=== PATIENT | female | born 1990 | race American Indian/Alaskan Native ===

== ENCOUNTER 2016-03-25 16:05 | Emergency (ER) | payer MEDICAID ==
[2016-03-25 17:12] VITALS: BP 114/48
--- NOTE | 2016-03-25 22:47 | Emergency Department Report ---
ED Eye Problem HPI - General Chief complaint: Eye Problems Stated complaint: POSS PINE EYE Source: patient Mode of arrival: Ambulatory Limitations: No Limitations - History of Present Illness Initial comments: 25-year-old female comes in for complaint of pain and redness of right eye. Patient reports that this is been going on for 1 week. It happened after she dyed her hair. She does admit to eye discharge but her eyelashes do not match and there is no yellowish greenish discharge just a clear white. He does admit that the light makes her eyes tear. The patient reports she was treated at the [facility] for this condition. She has been using the eyedrops but reports that the eye seems to be getting worse. Admit to mild photophobia and pain. - Related Data Home Medications Medication Instructions Recorded Confirmed Last Taken ALBUTEROL Inhaler [Proair] 2 puff IH QID PRN 04/12/15 04/12/15 Unknown Previous Rx's Medication Instructions Recorded Last Taken Type Doxycycline [Vibramycin CAP] 100 mg PO Q12HR #28 capsule 04/12/15 Unknown Rx Erythromycin [Erythromycin Ophth 1 strip OD QID #1 tube 03/25/16 Unknown Rx Oint] Allergies Allergy/AdvReac Type Severity Reaction Status Date / Time orange Allergy Swelling Verified 04/12/15 12:09 ED Review of Systems ROS: Stated complaint: POSS PINE EYE Other details as noted in HPI Constitutional: denies: chills, fever Eyes: eye pain, eye discharge (watery) ENT: denies: throat pain Neurological: denies: headache ED Past Medical Hx - Past Medical History Hx Asthma: Yes - Surgical History Additional Surgical History: - Social History Smoking Status: Never Smoker Substance Use Type: Alcohol - Medications Home Medications: Home Medications Medication Instructions Recorded Confirmed Last Taken Type ALBUTEROL Inhaler [Proair] 2 puff IH QID PRN 04/12/15 04/12/15 Unknown History Doxycycline [Vibramycin CAP] 100 mg PO Q12HR #28 capsule 04/12/15 Unknown Rx Erythromycin [Erythromycin Ophth 1 strip OD QID #1 tube 03/25/16 Unknown Rx Oint] ED Physical Exam - General Limitations: No Limitations General appearance: alert, in no apparent distress - Eye Eye exam: Present: PERRL, EOMI, scleral icterus, conjunctival injection Pupils: Present: normal accommodation, irregular ED Course Vital Signs 03/25/16 17:08 Temperature 98.7 F Pulse Rate 74 Respiratory 16 Rate Blood Pressure 114/48 O2 Sat by Pulse 98 Oximetry ED Medical Decision Making - Medical Decision Making Has been evaluated by this provider in fast track. Attempt to use it katie meter but the reading came up bad. Therefore the test was not useful. Fluorescein exam was performed no cording or abrasion uptake of the sclera inner and lateral aspect. As the Dr. Valenzuela he recommends changing the patient's antibiotic to erythromycin, ointment. Must follow-up with the dba manager. Critical care attestation.: If time is entered above; I have spent that time in minutes in the direct care of this critically ill patient, excluding procedure time. ED Disposition Clinical Impression: Conjunctivitis, right eye Qualifiers: Conjunctivitis type: acute Acute conjunctivitis type: unspecified Qualified Code(s): H10.31 - Unspecified acute conjunctivitis, right eye Disposition: DISCHARGED TO HOME OR SELFCARE Is pt being admited?: No Does the pt Need Aspirin: No Condition: Stable Instructions: Conjunctivitis (ED) Additional Instructions: Use antibiotic ointment to right eye as prescribed very very very importantly to follow up with dba manager as soon as possible. We will provide GI referral. Prescriptions: Erythromycin [Erythromycin Ophth Oint] 1 strip OD QID #1 tube Referrals: PRIMARY CARE, [Primary Care Provider] - 3-5 Days NAVEED RIVERA MD [Staff Physician] - 3-5 Days REYNA WILSON MD [Staff Physician] - 3-5 Days CARL AJ MD [Staff Physician] - 3-5 Days Forms: Work/School Release Form(ED)
[2016-03-25] MEDS: BSS 1 DROPS, TETRACAINE 0.5% 1 DROPS, FUL-GLO 1 MG OD ONE (23:38)
== END 2016-03-25 23:59 | disposition home or self-care (01) ==
LOC: ED 16:05
DX: H10.31 Unspecified acute conjunctivitis, right eye (principal); J45.909 Unspecified asthma, uncomplicated
CPT/HCPCS: 99282

== ENCOUNTER 2016-09-24 11:19 | Emergency (ER) | payer SELFPAY ==
[2016-09-24 11:32] VITALS: BP 102/57
[2016-09-24] MEDS ORDERED: TYLENOL PO ONE (13:42)
--- NOTE | 2016-09-24 14:42 | Emergency Department Report ---
Entered by SANGEETA FONTENOT, acting as scribe for RAKAN CHAU NP. ED ENT HPI - General Chief complaint: Dental/Oral Stated complaint: BACK OF TONGUE BURNING Time Seen by Provider: 09/24/16 13:34 Source: patient Mode of arrival: Ambulatory Limitations: No Limitations - History of Present Illness Initial comments: 26 y/o female presents to the ED c/o sore throat x 2 weeks. Associated symptoms include burning to tongue but she denies fever, chills, nausea and vomiting. Pain is described as burning and 6/10 on a severity scale. Patient states her tongue feels raw like she has ulcers and that she has been spitting a lot lately. No alleviating or aggravating factors. NKDA. Patient is 15 weeks . , P:2, A:1. LMP: 06/11/16. complaint: sore throat Onset/Timin -: week(s) Location: throat Severity: moderate Severity scale (0 -10): 6 Quality: burning Consistency: constant Improves with: none Worsens with: none Associated Symptoms: other (burning to tongue, denies:fever, chills, nausea and vomiting) - Related Data Home Medications Medication Instructions Recorded Confirmed Last Taken ALBUTEROL Inhaler [Proair] 2 puff IH QID PRN 04/12/15 09/24/16 Unknown Previous Rx's Medication Instructions Recorded Last Taken Type Acetaminophen 650 mg PO QID PRN #60 capsule 09/24/16 Unknown Rx Benzocaine/Menth/Cetylpyrd 1 each MM QID #24 packet 09/24/16 Unknown Rx [Cepacol X Strength] Allergies Allergy/AdvReac Type Severity Reaction Status Date / Time orange Allergy Swelling Verified 09/24/16 11:32 ED Dental HPI - General Chief complaint: Dental/Oral Stated complaint: BACK OF TONGUE BURNING Time Seen by Provider: 09/24/16 13:34 Source: patient Mode of arrival: Ambulatory Limitations: No Limitations - Related Data Home Medications Medication Instructions Recorded Confirmed Last Taken ALBUTEROL Inhaler [Proair] 2 puff IH QID PRN 04/12/15 09/24/16 Unknown Previous Rx's Medication Instructions Recorded Last Taken Type Acetaminophen 650 mg PO QID PRN #60 capsule 09/24/16 Unknown Rx Benzocaine/Menth/Cetylpyrd 1 each MM QID #24 packet 09/24/16 Unknown Rx [Cepacol X Strength] Allergies Allergy/AdvReac Type Severity Reaction Status Date / Time orange Allergy Swelling Verified 09/24/16 11:32 ED Review of Systems Comment: All other systems reviewed and negative Constitutional: denies: chills, fever ENT: throat pain, other (tongue burning) Gastrointestinal: denies: nausea, vomiting ED Past Medical Hx - Past Medical History Hx Asthma: Yes - Surgical History Additional Surgical History: - Social History Smoking Status: Never Smoker Substance Use Type: None - Medications Home Medications: Home Medications Medication Instructions Recorded Confirmed Last Taken Type ALBUTEROL Inhaler [Proair] 2 puff IH QID PRN 04/12/15 09/24/16 Unknown History Acetaminophen 650 mg PO QID PRN #60 capsule 09/24/16 Unknown Rx Benzocaine/Menth/Cetylpyrd 1 each MM QID #24 packet 09/24/16 Unknown Rx [Cepacol X Strength] ED Physical Exam - General Limitations: No Limitations General appearance: alert, in no apparent distress - Head Head exam: Present: atraumatic, normocephalic - Eye Eye exam: Present: normal appearance, PERRL, EOMI. Absent: scleral icterus, conjunctival injection, nystagmus, periorbital swelling, periorbital tenderness Pupils: Present: normal accommodation - ENT ENT exam: Present: normal exam, mucous membranes moist, TM's normal bilaterally , normal external ear exam, other (pharyngitis) - Expanded ENT Exam Expanded Mouth exam: Present: tongue normal, other (clear post nasal drip ). Absent: drooling, trismus, muffled voice, tongue elevation, laceration Teeth exam: Present: normal inspection Throat exam: Positive: tonsillar erythema, other (mild pharynx erythema no lesion no exudate uvula midline clear post nasal drip airway patnent no stridor ). Negative: tonsillomegaly, tonsillar exudate, R peritonsillar mass, L peritonsillar mass - Neck Neck exam: Present: normal inspection, full ROM. Absent: tenderness, meningismus, lymphadenopathy, thyromegaly - Respiratory Respiratory exam: Present: normal lung sounds bilaterally. Absent: respiratory distress, wheezes, rales, rhonchi, stridor, chest wall tenderness, accessory muscle use, decreased breath sounds, prolonged expiratory - Cardiovascular Cardiovascular Exam: Present: regular rate, normal rhythm, normal heart sounds. Absent: bradycardia, tachycardia, irregular rhythm, systolic murmur, diastolic murmur, rubs, gallop - GI/Abdominal GI/Abdominal exam: Present: soft, normal bowel sounds. Absent: distended, tenderness, guarding, rebound, rigid, diminished bowel sounds - Extremities Exam Extremities exam: Present: normal inspection, full ROM, normal capillary refill. Absent: tenderness, pedal edema, joint swelling, calf tenderness - Back Exam Back exam: Present: normal inspection, full ROM. Absent: tenderness, CVA tenderness (R), CVA tenderness (L), muscle spasm, paraspinal tenderness, vertebral tenderness, rash noted - Neurological Exam Neurological exam: Present: alert, oriented X3 - Psychiatric Psychiatric exam: Present: normal affect, normal mood - Skin Skin exam: Present: warm, dry, intact, normal color. Absent: rash ED Course Vital Signs 09/24/16 09/24/16 11:24 13:56 Temperature 98.5 F Pulse Rate 69 Respiratory 17 187 H Rate Blood Pressure 102/57 O2 Sat by Pulse 100 Oximetry ED Medical Decision Making - Medical Decision Making pt is a 26 y/o aaf G4, P2, A-spontaneous -miscarrage 6 months ago, 14 weeks gestation at this time has good PERSONAL COUNSELOR follow appointment next week , pt presents for sore throat has had excessive salavation since onset of , has had sore throat for past 2 weeks pain excerbated by swallowing there is no fever no chills no n/v no abdominal pain no chills pt is tolerating po intake withou difficulty , Rapid strep: Negative Plan: Tylenol prn pain , cepachol lozenges prn throat pain follow up with PERSONAL COUNSELOR as scheduled next week. pt verbalized agreement and understanding with discharge plan. ED Disposition Clinical Impression: Pharyngitis Qualifiers: Pharyngitis/tonsillitis etiology: unspecified etiology Qualified Code(s): J02.9 - Acute pharyngitis, unspecified Disposition: DC-01 TO HOME OR SELFCARE Is pt being admited?: No Does the pt Need Aspirin: No Condition: Good Instructions: Pharyngitis (ED) Prescriptions: Acetaminophen 650 mg PO QID PRN #60 capsule PRN Reason: Pain Benzocaine/Menth/Cetylpyrd [Cepacol X Strength] 1 each MM QID #24 packet Referrals: EDWARDO DESAI MD [Primary Care Provider] - 3-5 Days Forms: Work/School Release Form(ED) Time of Disposition: 14:40 This documentation as recorded by the PO kyle ELIZABETH,accurately reflects the service I personally performed and the decisions made by me, RAKAN CHAU NP.
== END 2016-09-24 15:00 | disposition home or self-care (01) ==
LOC: ED 11:19
DX: J02.9 Acute pharyngitis, unspecified (principal); J45.909 Unspecified asthma, uncomplicated
CPT/HCPCS: 87116; 87430; 99282

== ENCOUNTER 2017-02-10 20:12 | Outpatient (CLI) | payer MEDICAID ==
[2017-02-10 20:31] VITALS: BP 114/59
[2017-02-10] MEDS ORDERED: LACTATED RINGERS 500 ML IV ONE (20:49)
[2017-02-10 21:26] LABS: Bacteria,Urine 1+ /HPF (Negative); Bilirubin,Urine NEG (Negative); Blood,Urine NEG (Negative); Ketones,Urine NEG (Negative); Leukocyte Esterase,Urine NEG (Negative); Mucus,Urine 1+ /HPF; Nitrite,Urine NEG (Negative); Protein,Urine <15 mg/dL mg/dL (Negative)
== END 2017-02-10 21:18 | disposition home or self-care (01) ==
LOC: TRG 20:12
PROVIDERS: ATTEND Obstetrics & Gynecology
DX: O26.893 Other specified pregnancy related conditions, third trimester (principal); R07.9 Chest pain, unspecified; Z3A.34 34 weeks gestation of pregnancy
CPT/HCPCS: 59025; 81001

== ENCOUNTER 2017-03-03 13:07 | Outpatient (CLI) | payer MEDICAID | END 2017-03-03 14:43 | disposition home or self-care (01) | LOC: TRG 13:07 | PROVIDERS: ATTEND Obstetrics & Gynecology | DX: O47.03 False labor before 37 completed weeks of gestation, third trimester (principal); Z3A.36 36 weeks gestation of pregnancy | CPT/HCPCS: 59025 ==